=== PATIENT | female | born 1965 | race Caucasian/White ===

== ENCOUNTER 2024-07-23 17:59 | Emergency (ER) | payer OTHER, SELFPAY ==
[2024-07-23 18:05] VITALS: BP 160/99
--- NOTE | 2024-07-23 18:07 | ED.PDOC.TRB ---
ED Provider Triage
-
Patient seen by provider in Triage?: Seen in Triage
Attestation: A medical screening examination has been initiated by a qualified medical provider. Based on the assessment performed at this time, it has been determined that an emergent medical condition may exist and the patient has been informed
that further medical evaluation and possible additional diagnostic testing may be needed.
HPI: 59-year-old female presents for evaluation of acute onset of chest discomfort and lightheadedness associated with right neck discomfort beginning approximately 2 to 3 hours prior to arrival. Prehospital EKG reportedly abnormal. No history of
similar episodes
GENERAL: Alert , in no apparent distress
EYE: No visual abnormalities.
NECK: Trachea midline
ENT: No visible abnormalities.
LUNGS: No acute respiratory distress
NEUROLOGICAL: Alert and oriented
SKIN: Skin intact. No visible changes.
MUSCULOSKELETAL: Moving extremities normally
PSYCH: Normal and appropriate interaction.
Assessment: EKG independently turbid by me in triage is suggestive of an SVT with rates of 120 as there are retrograde P waves noted. Certainly her chest symptoms with radicular pain is concerning for ACS. Will check cardiac labs
This is a medical evaluation conducted in person to initiate diagnostic evaluation and provide initial therapeutics. Please see further documentation by the treating clinician.
[2024-07-23 18:43] LABS: % Basophils 0.3 % (0-2); % Eosinophils 0.8 % (0-6); % Immature Granulocytes 0.2 % (0-0.5); % Lymphocytes 17.3 % (20.5-51.1); % Monocytes 6.6 % (1.7-9.3); % Neutrophils 74.8 % (42.2-75.2); Absolute Eosinophils 0.1 10^3/uL (0-0.7); Absolute Lymphocytes 1.1 10^3/uL (1.2-3.4); Absolute Monocytes 0.4 10^3/uL (0.1-0.6); Absolute Neutrophils 4.8 10^3/uL (1.4-6.5); Hematocrit 42.5 % (37.0-47.0); Hemoglobin 14.7 g/dL (12.0-16.0); Mean Corp Hgb Conc. 34.6 g/dL (33.0-37.0); Mean Corpuscular Hgb 30.2 pg (27.0-31.0); Mean Corpuscular Volume 87.4 fL (81.0-99.0); Mean Platelet Volume 10.6 fL (7.4-10.4); Nucleated Red Blood Cells % 0 %; Platelet Count 169 10^3/uL (130-400); Red Blood Cell Count 4.86 10^6/uL (4.20-5.40); Red Cell Dist. Width 12.7 % (11.5-14.5); White Blood Cell Count 6.4 10^3/uL (4.8-10.8)
[2024-07-23 19:03] LABS: ALT (SGPT) 44 U/L (0-35); AST (SGOT) 45 U/L (14-36); Albumin 5.1 g/dl (3.5-5.0); Alkaline Phosphatase 84 U/L (38-126); Blood Urea Nitrogen 17 mg/dl (7-17); Calcium 10.3 mg/dl (8.4-10.2); Carbon Dioxide 23 mmol/L (22-30); Chloride 102 mmol/L (98-107); Glucose 152 mg/dl (70-99); Potassium 4.1 mmol/L (3.5-5.1); Sodium 142 mmol/L (135-145); Total Bilirubin 0.6 mg/dl (0.2-1.3); Total Protein 7.6 g/dl (6.3-8.2); eGFR > 60.00
[2024-07-23 19:12] VITALS: BP 113/71
[2024-07-23 19:15] LABS: Troponin I < 0.012 ng/ml
--- NOTE | 2024-07-23 19:36 | ED.GENMED ---
History of Present Illness
General
Chief Complaint: Chest Pain
Source: patient
Exam Limitations: none
Time Seen by Provider: 07/23/24 18:48
Nursing documentation reviewed up to this point in time: agreed with
History of Present Illness
History of Present Illness:
59-year-old female presents emergency room complaining of sudden chest tightness lightheadedness and dizziness that started around 330. She has had episodes of this in the past, but this lasted longer. She denies any symptoms at this time.
Past History
Past History
ED Past Medical History: Cancer (Ovarian)
ED Past Surgical History: Gynecological (Hysterectomy)
Phy Exam
Physical Exam
Physical Exam:
Physical Exam
General: no apparent distress, not acutely ill
Neck: supple. no meningeal signs. normal posterior pharynx
Heart: s1/s2 regular rate and rhythm, no murmur. equal radial
pulses.
HEENT: Pupils equal round reactive to light, EOMI
Lungs: no acute respiratory distress. clear bilaterally
Abdomen: normal bowel sounds. not tender. no CVAT
Neuro: alert and oriented. no focal neurological deficits cranial nerves II through XII intact
Skin: no rash
Psychiatric: well kept. interactive and cooperative
Extremities: no edema. no calf tenderness. negative homans. good distal pulses
Scores
Heart Score for Chest Pain Patients
STEMI patient?: Not applicable
Course
Orders/Labs/Results
Orders:
Orders
07/23/24 18:00
EKG [Electrocardiogram (*1)] Urgent
Reason for Study: Chest Pain
EKG- Treatment ONCE
07/23/24 18:36
Complete Blood Count/With Diff Urgent
Comprehensive Metabolic Panel Urgent
TSH Reflex To Free T4 Urgent
Troponin I Urgent
07/23/24 19:14
Electrocardiogram (*1) Urgent
Reason for Study: Other
Other Reason for Exam: rythm change
07/23/24 19:15
EKG- Treatment ONCE
07/23/24 19:55
Diltiazem Extended Release [Cardizem Cd] 120 mg PO NOW STA
Abnormal Lab Results
07/23/24
18:36
MPV 10.6 H fL
(7.4-10.4)
Absolute Lymphs (auto) 1.1 L 10^3/uL
(1.2-3.4)
Lymphocytes % 17.3 L %
(20.5-51.1)
Glucose 152 H mg/dl
(70-99)
Calcium 10.3 H mg/dl
(8.4-10.2)
AST 45 H U/L
(14-36)
ALT 44 H U/L
(0-35)
Albumin 5.1 H g/dl
(3.5-5.0)
07/23/24 18:36
07/23/24 18:36
Vital Signs
Initial and Last Documented VS:
Initial Vital Signs
Temp Pulse Resp BP Pulse Ox
98.9 F 124 20 160/99 100
07/23/24 18:05 07/23/24 18:05 07/23/24 18:05 07/23/24 18:05 07/23/24 18:05
Last Documented Vital Signs
Temp Pulse Resp BP Pulse Ox
98.9 F 83 16 113/71 100
07/23/24 18:05 07/23/24 19:45 07/23/24 19:45 07/23/24 19:12 07/23/24 19:45
MDM/Problems Addressed
Differential Diagnosis Includes:
afib, svt, avnrt
MDM/Problems Addressed:
59-year-old female with AV darrel reentrant tachycardia. Patient converted spontaneously. Stable for discharge. Discussed with Dr. Martinez, who recommends Cardizem 120 CD daily. Follow-up with Dr. Gray.
Chronic conditions affecting care: Cancer
*Pulse Oximetry
Patient hypoxic: no
*EKG
Interpreted by ED Provider?: Yes
EKG Intrepretation Date: 07/23/24
EKG Intrepretation Time: 18:04
Interpretation: abnormal
Comparison EKG: no comparison EKG present
Heart Rate: 124
Rate: tachycardiac
Rhythm: other (AV darrel re entry tachycardia)
[place]: normal axis
Interval: normal interval
QRS Pattern: normal QRS
Ischemia: no ischemia
*Shoe Packer Interpretation
Rate: normal
Interpretation: normal
Heart Rate: 72
Rhythm: sinus
*Critical Care Note
Total Time (30-74mins, 75-104mins- exclusive of procedures): Not Applicable
Patient Management
Social determinants of health affecting care: Living situation
Discussion with other providers: G[employer] Merch[employer]iser (cardiology Dr. Martinez)
Escalation/DeEscalation of care consider admission/obs:
admit not indicated
ED Attending Note
-
Portions of this chart may have been created with voice recognition software.� Occasional wrong word or��sound alike� substitutions may have occurred due to the inherent limitations of voice recognition software.
Discharge Plan
Departure
Patient Disposition: Home (Routine Discharge)
Date of Disposition: 07/23/24
Time of Disposition: 19:56
Patient with high blood pressure during this ER visit?: Yes
Condition: Good
Discharge Problem:
Atrioventricular darrel re-entry tachycardia
Instructions: Supraventricular tachycardia (SVT)
Prescriptions:
New
diltiazem HCl [Cardizem CD] 120 mg capsule,extended release 24hr
120 mg PO DAILY Qty: 30 0RF
Referrals:
Navya Gray MD [Active] - Call in 1-3 days for appt
Jared Haines MD [Family Provider] -
Interventions
Interventions:
*Risk Screen - Suicide Last Done: 07/23/24 18:05
*General Assessment Last Done: 07/23/24 18:05
*Neglect/Abuse Screening Last Done: 07/23/24 18:05
ED- Cardiac Assessment Last Done: 07/23/24 18:37
Discharge Date and Time
Print Language: COMORAN
[2024-07-23 19:59] LABS: TSH Reflex To Free T4 3.85 uIU/ml (0.47-4.68)
[2024-07-23 20:11] VITALS: BP 91/68
--- NOTE | 2024-07-23 20:36 | EDRN ---
Went to give patient PO Caridzem before she leaves, her BP was 91/68, spoke with Dr. Haq, will hold off on med and speak with patient and change prescription for departure.
== END 2024-07-23 20:39 | disposition home or self-care (01) ==
LOC: EMR 17:59
PROVIDERS: Physician Assistant; EMERGENCY PHYSICIAN Emergency Medicine; FAMILY PHYSICIAN Family Medicine
DX: I47.19 Other supraventricular tachycardia (principal); R07.89 Other chest pain; Z85.43 Personal history of malignant neoplasm of ovary; Z90.710 Acquired absence of both cervix and uterus
CPT/HCPCS: 99284; 80053; 84443; 84484; 85025; 93005

== ENCOUNTER 2024-07-25 10:03 | Emergency (ER) | payer OTHER, SELFPAY ==
[2024-07-25] VITALS (10 sets, daily range): BP systolic 123–176; BP diastolic 67–93; PULSE 75–79
[2024-07-25 10:16] LABS: Glucose - Point of Care 106 mg/dl (70-99)
[2024-07-25 10:24] LABS: % Basophils 0.4 % (0-2); % Eosinophils 1.3 % (0-6); % Immature Granulocytes 0.2 % (0-0.5); % Lymphocytes 28.8 % (20.5-51.1); % Monocytes 9.3 % (1.7-9.3); Absolute Eosinophils 0.1 10^3/uL (0-0.7); Absolute Lymphocytes 1.4 10^3/uL (1.2-3.4); Absolute Monocytes 0.4 10^3/uL (0.1-0.6); Absolute Neutrophils 2.9 10^3/uL (1.4-6.5); Hematocrit 44.6 % (37.0-47.0); Hemoglobin 15.4 g/dL (12.0-16.0); Mean Corp Hgb Conc. 34.5 g/dL (33.0-37.0); Mean Corpuscular Hgb 30.7 pg (27.0-31.0); Mean Platelet Volume 10.5 fL (7.4-10.4); Nucleated Red Blood Cells % 0 %; Platelet Count 174 10^3/uL (130-400); Red Blood Cell Count 5.01 10^6/uL (4.20-5.40); Red Cell Dist. Width 12.8 % (11.5-14.5); White Blood Cell Count 4.8 10^3/uL (4.8-10.8)
--- NOTE | 2024-07-25 10:28 | ED.GENMED ---
History of Present Illness
General
Chief Complaint: Fainting Sensation
Source: patient
Exam Limitations: none
Time Seen by Provider: 07/25/24 10:10
History of Present Illness
History of Present Illness:
59-year-old female with remote history of ovarian cancer presents for evaluation of lightheadedness and shakiness onset this morning. She denies chest tightness but did note some indigestion. She was here 2 days ago initially found to have SVT but
this self converted. She was prescribed Cardizem 120 mg CD however her blood pressure was too low to take it. Currently she feels numbness in both hands. She feels anxious and shaky. She noted when she was standing up she felt lightheaded she
was nauseous without abdominal pain or vomiting.
Past History
Past History
ED Past Medical History: Cancer (Ovarian)
ED Past Surgical History: Gynecological (Hysterectomy)
Phy Exam
Physical Exam
Physical Exam:
General: Anxious appearing female no acute distress
HEENT: Normocephalic atraumatic
Heart: Regular rate and rhythm no murmurs
Lungs: Clear no obvious wheeze
Abdomen is soft nontender nondistended
Extremities: No cyanosis or edema skin: Warm no rash
Course
Orders/Labs/Results
Orders:
Orders
07/25/24 10:09
Electrocardiogram (*1) Urgent
Reason for Study: Palpitations
EKG- Treatment ONCE
07/25/24 10:19
CMP [Comprehensive Metabolic Panel] Urgent
Complete Blood Count/With Diff Urgent
Troponin I Urgent
07/25/24 10:25
Orthostatic VS- Treatment ONCE
07/25/24 11:08
0.9% Sodium Chloride 1000 ml [Nss] 1,000 ml IV BOLUS
Abnormal Lab Results
07/25/24 07/25/24
10:14 10:19
MPV 10.5 H fL
(7.4-10.4)
BUN 18 H mg/dl
(7-17)
Glucose 115 H mg/dl
(70-99)
Calcium 10.3 H mg/dl
(8.4-10.2)
ALT 38 H U/L
(0-35)
Albumin 5.2 H g/dl
(3.5-5.0)
POC Glucose 106 H mg/dl
(70-99)
07/25/24 10:19
07/25/24 10:19
Vital Signs
Initial and Last Documented VS:
Initial Vital Signs
Temp Pulse Resp BP Pulse Ox
98.4 F 84 18 176/93 100
07/25/24 10:06 07/25/24 10:06 07/25/24 10:06 07/25/24 10:06 07/25/24 10:06
Last Documented Vital Signs
Temp Pulse Resp BP Pulse Ox
98.4 F 71 15 132/74 100
07/25/24 10:06 07/25/24 13:00 07/25/24 13:00 07/25/24 13:00 07/25/24 12:30
MDM/Problems Addressed
Differential Diagnosis Includes:
Sensation of lightheadedness and shakiness. Question arrhythmia versus orthostasis versus ACS versus anxiety
Reviewed labs from last visit. She had a normal TSH last visit. She did have SVT that spontaneously resolved. She is in sinus rhythm on initial arrival
Check labs orthostatic vital signs. Keep on monitor
*Critical Care Note
Total Time (30-74mins, 75-104mins- exclusive of procedures): Not Applicable
Update Note
Update Note:
Patient reevaluated multiple times has stable vital signs in the sinus rhythm the whole time. Troponin undetectable. Patient concerned about her symptoms as his family. The patient has a family history coronary artery disease. She was advised to
take diltiazem last visit however patient did not do so secondary to lower blood pressure. Discussed with cardiology today who recommended again initiating on diltiazem I reinforced this idea with the patient. Chest pain hotline was utilized for
close follow-up. Stable for discharge
ED Attending Note
-
Portions of this chart may have been created with voice recognition software.� Occasional wrong word or��sound alike� substitutions may have occurred due to the inherent limitations of voice recognition software.
Discharge Plan
Departure
Patient Disposition: Home (Routine Discharge)
Date of Disposition: 07/25/24
Time of Disposition: 14:22
Patient with high blood pressure during this ER visit?: No
Discharge Problem:
Light-headedness
Instructions: Near Fainting (DC), Chest Pain CBC Follow Up
Prescriptions:
No Action
diltiazem HCl [Cardizem] 30 mg tablet
30 mg PO ONCE PRN (Reason: rapid heart rate) Qty: 20 0RF
Referrals:
Jared Haines MD [Family Provider] -
Activity Restrictions/Additional Instructions:
Please take diltiazem as prescribed. Please follow-up with cardiology.
Interventions
Interventions:
*Risk Screen - Suicide Last Done: 07/25/24 10:06
*General Assessment Last Done: 07/25/24 10:06
*Neglect/Abuse Screening Last Done: 07/25/24 10:06
ED- Fall Risk Assessment Last Done: 07/25/24 10:15
*ED COVID-19 Vaccine History Last Done: 07/25/24 10:25
ED- Cardiac Assessment Last Done: 07/25/24 10:15
ED- Neurological Assessment Last Done: 07/25/24 10:15
Discharge Date and Time
Print Language: LATVIAN
[2024-07-25 10:39] LABS: ALT (SGPT) 38 U/L (0-35); AST (SGOT) 36 U/L (14-36); Albumin 5.2 g/dl (3.5-5.0); Alkaline Phosphatase 73 U/L (38-126); Blood Urea Nitrogen 18 mg/dl (7-17); Calcium 10.3 mg/dl (8.4-10.2); Carbon Dioxide 23 mmol/L (22-30); Chloride 103 mmol/L (98-107); Glucose 115 mg/dl (70-99); Potassium 4.3 mmol/L (3.5-5.1); Sodium 142 mmol/L (135-145); Total Bilirubin 0.8 mg/dl (0.2-1.3); Total Protein 7.9 g/dl (6.3-8.2); eGFR > 60.00
[2024-07-25 10:50] LABS: Troponin I < 0.012 ng/ml
[2024-07-25] MEDS: NSS 1000 IV (11:26)
== END 2024-07-25 14:41 | disposition home or self-care (01) ==
LOC: EMR 10:03
PROVIDERS: Physician Assistant; EMERGENCY PHYSICIAN Emergency Medicine; FAMILY PHYSICIAN Family Medicine
DX: R42 Dizziness and giddiness (principal); Z85.43 Personal history of malignant neoplasm of ovary; Z90.710 Acquired absence of both cervix and uterus
CPT/HCPCS: 99284; 96360; 80053; 82962; 84484; 85025; 93005

== ENCOUNTER → 2024-08-06 07:50 | Outpatient (REF) | payer OTHER, SELFPAY | LOC: DHCBC/DCA 07:50 | PROVIDERS: ATTENDING PHYSICIAN Internal Medicine Cardiovascular Disease; FAMILY PHYSICIAN Family Medicine | DX: I47.10 Supraventricular tachycardia, unspecified (principal); R07.2 Precordial pain | CPT/HCPCS: 78452; 93017; A9500 ==

== ENCOUNTER → 2024-08-10 07:11 | Outpatient (REF) | payer OTHER, SELFPAY | LOC: RCS 07:11 | PROVIDERS: ATTENDING PHYSICIAN Internal Medicine Cardiovascular Disease; FAMILY PHYSICIAN Family Medicine | DX: I47.10 Supraventricular tachycardia, unspecified (principal); R07.2 Precordial pain; Z85.43 Personal history of malignant neoplasm of ovary | CPT/HCPCS: 93306; 93356 ==